=== PATIENT | female | born 1995 | race Caucasian/White ===

== ENCOUNTER 2017-11-18 02:42 | Outpatient (CLI) | payer BC ==
[~2017-11-18] VITALS: Ht 162.6 cm; Wt 86.8 kg
[2017-11-18 02:50] VITALS: BP 130/80
[2017-11-18 03:22] LABS: MICROSCOPIC INDICATED
== END 2017-11-18 03:57 | disposition home or self-care (01) ==
LOC: LDOP 02:42
PROVIDERS: ATTEND Student in an Organized Health Care Education/Training Program
DX: O26.893 Other specified pregnancy related conditions, third trimester (principal); R10.2 Pelvic and perineal pain; M54.5 Low back pain; Z3A.37 37 weeks gestation of pregnancy
CPT/HCPCS: 59025; 81001; 87086; 99201; G0463